=== PATIENT | female | born 1980 | race Caucasian/White ===

== ENCOUNTER 2024-07-02 12:49 | Emergency (ER) | payer OTHER, SELFPAY ==
[2024-07-02 12:56] VITALS: BP 132/84; PULSE 92; TEMP 36.8; O2SAT 98; BMI 34.3
--- NOTE | 2024-07-02 13:00 | ED_ITS ---
HPI HPI - General Adult General Chief complaint: Vaginal Bleeding Stated complaint: VAGINAL BLEEDING Time Seen by Provider: 07/02/24 12:55 Source: patient Mode of arrival: walk-in Limitations: no limitations History of Present Illness HPI narrative: 43-year-old female presents to the emergency department for heavy vaginal bleeding. It started 3 days ago and this has never happened to her before. LMP that was normal was 2 and half weeks ago. She does not complain of abdominal pain or cramping or dizziness. No injury Related Data Allergies Allergy/AdvReac Type Severity Reaction Status Date / Time Sulfa (Sulfonamide Allergy Severe Swelling Verified 07/02/24 12:55 Antibiotics) of Lip/Tongue/Throat Opioid HPI Opioid Management Most Recent Opioid Data: No Data to Display Review of Systems ROS Narrative A ten point review of systems is negative except as noted above. PFSH PFSH Social History Little interest or pleasure in doing things: not at all Feeling down, depressed, or hopeless: not at all Exam Narrative Exam Narrative: Nurses note and vital signs reviewed and patient is not hypoxic. General: The patient appears well and in no apparent distress. Patient is resting comfortably on cart. Skin: Warm, dry, no pallor noted. There is no rash noted. Head: Normocephalic, atraumatic Eye: Normal conjunctiva, no drainage Ears, Nose, Mouth, and Throat: oral mucosa is moist. Nares patent. Cardiovascular: Regular Rate and Rhythm Respiratory: Patient is in no distress, no accessory muscle use, lungs are clear to auscultation, no wheezing, rales or rhonchi Back: non-tender GI: Soft and nontender, no mass Musculoskeletal: The patient has no evidence of calf tenderness, no pitting edema, symmetrical pulses noted bilaterally Neurological: A&O, normal speech Psychiatric: Cooperative Constitutional Vital Signs, click to edit/add: Last Vital Signs Temp 98.3 F 07/02/24 12:56 Pulse 80 07/02/24 14:45 Resp 20 07/02/24 14:45 BP 131/89 07/02/24 14:45 Pulse Ox 96 07/02/24 14:45 O2 Del Method Room Air 07/02/24 14:45 Course Vital Signs Vital signs: Vital Signs Temperature 98.3 F 07/02/24 12:56 Pulse Rate 92 H 07/02/24 12:56 Respiratory Rate 16 07/02/24 12:56 Blood Pressure 132/84 07/02/24 12:56 Pulse Oximetry 98 07/02/24 12:56 Oxygen Delivery Method Room Air 07/02/24 12:56 Temperature 98.3 F 07/02/24 12:56 Pulse Rate 80 07/02/24 14:45 Respiratory Rate 20 07/02/24 14:45 Blood Pressure 131/89 07/02/24 14:45 Pulse Oximetry 96 07/02/24 14:45 Oxygen Delivery Method Room Air 07/02/24 14:45 Medical Decision Making MDM Narrative Medical decision making narrative: She is not and her test is negative. Ultrasound shows only mild enlargement of the uterus. She will be discharged home and follow-up with gynecology. Treatment diagnosis and follow-up were discussed with the patient Differential Diagnosis Differential Diagnosis: Miscarriage, ectopic , uterine fibroids, abnormal uterine bleed Lab Data Lab results reviewed: Yes I reviewed the patient's lab results Labs: Lab Results 07/02/24 Range/Units 13:10 WBC 9.7 (4.0-11.0) 10^3/uL RBC 4.24 (4.20-5.40) 10^6/uL Hgb 13.4 (12.0-16.0) g/dL Hct 39.6 (36.0-48.0) % MCV 93.4 (81.0-99.0) fL MCH 31.6 (26.7-34.0) pg MCHC 33.8 (29.9-35.2) g/dL RDW 12.3 (11.0-15.0) % Plt Count 254 (150-450) 10^3/uL MPV 9.1 L (9.5-13.5) fL Neut % (Auto) 70.1 (43.0-75.0) % Lymph % (Auto) 21.5 (20.5-60.0) % Sharkey % (Auto) 6.8 (1.7-12.0) % Eos % (Auto) 0.8 L (0.9-7.0) % Baso % (Auto) 0.5 (0.2-2.0) % Neut # (Auto) 6.8 H (1.4-6.5) 10^3/uL Lymph # (Auto) 2.1 (1.2-3.8) 10^3/uL Sharkey # (Auto) 0.7 (0.3-0.8) 10^3/uL Eos # (Auto) 0.1 (0.0-0.7) 10^3/uL Baso # (Auto) 0.1 (0.0-0.1) 10^3/uL Abs Immat Gran (auto) 0.03 (0.00-0.03) 10^3/uL Imm/Tot Granulo (auto) 0.3 (0.0-0.5) % Sodium 142 (136-145) mmol/L Potassium 3.6 (3.5-5.1) mmol/L Chloride 103 (98-107) mmol/L Carbon Dioxide 26.8 (21.0-32.0) mmol/L Anion Gap 15.8 BUN 14.0 (7.0-18.0) mg/dL Creatinine 0.92 (0.55-1.02) mg/dL Est GFR ( Amer) >60 (>=60 mL/min/1.73m^2) Est GFR (Non-Af Amer) >60 (>=60 mL/min/1.73m^2) BUN/Creatinine Ratio 15.2 Glucose 128 H (74-106) mg/dL Calcium 9.0 (8.5-10.1) mg/dL Serum HCG, Qual Negative (NEGATIVE) Imaging Data Pelvic ultrasound: Radiologist's impression: No evidence of ovarian torsion, mild enlargement of uterine Discharge Plan Discharge Chief Complaint: Vaginal Bleeding Clinical Impression: Dysfunctional uterine bleeding Patient Disposition: Home, Self-Care Time of Disposition Decision: 15:02 Condition: Good Mode of Transportation: Private Vehicle Print Language: Montenegrin Instructions: Abnormal (Dysfunctional) Uterine Bleeding (ED) Referrals: SANTY JAY [Primary Care Provider] - 1 week Gerald Mercado DO [Physician] -
[2024-07-02 13:30] LABS: Basophils Absolute Auto 0.1 10^3/uL (0.0-0.1); Basophils Percent Auto 0.5 % (0.2-2.0); Eosinophils Absolute Auto 0.1 10^3/uL (0.0-0.7); Eosinophils Percent Auto 0.8 % (0.9-7.0); Hematocrit 39.6 % (36.0-48.0); Hemoglobin 13.4 g/dL (12.0-16.0); Immature Granulocytes Abs Auto 0.03 10^3/uL (0.00-0.03); Immature Granulocytes Pct Auto 0.3 % (0.0-0.5); Lymphocytes Absolute Auto 2.1 10^3/uL (1.2-3.8); Lymphocytes Percent Auto 21.5 % (20.5-60.0); Mean Corpuscular HGB Conc 33.8 g/dL (29.9-35.2); Mean Corpuscular Hemoglobin 31.6 pg (26.7-34.0); Mean Corpuscular Volume 93.4 fL (81.0-99.0); Mean Platelet Volume 9.1 fL (9.5-13.5); Monocytes Absolute Auto 0.7 10^3/uL (0.3-0.8); Monocytes Percent Auto 6.8 % (1.7-12.0); Neutrophils Absolute Auto 6.8 10^3/uL (1.4-6.5); Neutrophils Percent Auto 70.1 % (43.0-75.0); Platelet Count 254 10^3/uL (150-450); Red Blood Count 4.24 10^6/uL (4.20-5.40); Red Cell Distribution Width 12.3 % (11.0-15.0); White Blood Count 9.7 10^3/uL (4.0-11.0)
[2024-07-02 13:43] LABS: Anion Gap 15.8; BUN Creatinine Ratio 15.2; Carbon Dioxide 26.8 mmol/L (21.0-32.0); Chloride 103 mmol/L (98-107); Estimated GFR (African America >60 (>=60 mL/min/1.73m^2); Estimated GFR (Non-African Ame >60 (>=60 mL/min/1.73m^2); Glucose 128 mg/dL (74-106); HCG Qualitative NEGATIVE (NEGATIVE); Internal Control Within Normal Limits; Potassium 3.6 mmol/L (3.5-5.1); Sodium 142 mmol/L (136-145)
[2024-07-02 14:45] VITALS: BP 131/89; PULSE 80; O2SAT 96
== END 2024-07-02 15:15 | disposition home or self-care (01) ==
PROVIDERS: Emergency Provider Emergency Medicine; PCP Family Medicine
DX: N93.8 Other specified abnormal uterine and vaginal bleeding (principal); N85.2 Hypertrophy of uterus
CPT/HCPCS: 36415; 76830; 80048; 84703; 85025; 99285

== ENCOUNTER 2024-07-30 15:14 | Outpatient (REF) | payer OTHER, SELFPAY | END 2024-07-30 15:15 | disposition home or self-care (01) | LOC: LAB 15:14 | PROVIDERS: PCP Family Medicine; Visit Provider Obstetrics & Gynecology | DX: N92.0 Excessive and frequent menstruation with regular cycle (principal) | CPT/HCPCS: 88305 ==

== ENCOUNTER 2024-08-15 11:11 | Outpatient (OUT) | payer OTHER, SELFPAY ==
[2024-08-15 11:41] LABS: Basophils Percent Auto 0.4 % (0.2-2.0); Eosinophils Absolute Auto 0.1 10^3/uL (0.0-0.7); Eosinophils Percent Auto 0.9 % (0.9-7.0); Hematocrit 36.7 % (36.0-48.0); Hemoglobin 12.7 g/dL (12.0-16.0); Immature Granulocytes Abs Auto 0.03 10^3/uL (0.00-0.03); Immature Granulocytes Pct Auto 0.3 % (0.0-0.5); Lymphocytes Absolute Auto 2.3 10^3/uL (1.2-3.8); Lymphocytes Percent Auto 24.3 % (20.5-60.0); Mean Corpuscular HGB Conc 34.6 g/dL (29.9-35.2); Mean Corpuscular Hemoglobin 32.6 pg (26.7-34.0); Mean Corpuscular Volume 94.1 fL (81.0-99.0); Mean Platelet Volume 8.9 fL (9.5-13.5); Monocytes Absolute Auto 0.6 10^3/uL (0.3-0.8); Monocytes Percent Auto 6.2 % (1.7-12.0); Neutrophils Absolute Auto 6.5 10^3/uL (1.4-6.5); Neutrophils Percent Auto 67.9 % (43.0-75.0); Platelet Count 232 10^3/uL (150-450); Red Cell Distribution Width 12.4 % (11.0-15.0); White Blood Count 9.6 10^3/uL (4.0-11.0)
[2024-08-15 11:56] LABS: INR 0.98; Partial Thromboplastin Time 26.2 sec (22.3-36.2); Prothrombin Time 10.4 sec (9.0-11.6)
[2024-08-15 12:12] LABS: Alanine Aminotransferase 52 U/L (14-59); Albumin Globulin Ratio 0.9; Albumin Level 3.3 g/dL (3.4-5.0); Alkaline Phosphatase 54 U/L (46-116); Anion Gap 11.8; Aspartate Amino Transferase 53 U/L (15-37); Bilirubin Direct 0.1 mg/dL (0.0-0.2); Bilirubin Total 0.4 mg/dL (0.2-1.0); Calcium 8.8 mg/dL (8.5-10.1); Carbon Dioxide 27.6 mmol/L (21.0-32.0); Chloride 105 mmol/L (98-107); Estimated GFR (African America >60 (>=60 mL/min/1.73m^2); Estimated GFR (Non-African Ame >60 (>=60 mL/min/1.73m^2); Globulin 3.6 g/dL; Glucose 104 mg/dL (74-106); Potassium 3.4 mmol/L (3.5-5.1); Sodium 141 mmol/L (136-145); Total Protein 6.9 g/dL (6.4-8.2)
== END 2024-08-15 11:12 | disposition home or self-care (01) ==
LOC: PST 11:12
PROVIDERS: PCP Family Medicine; Visit Provider Obstetrics & Gynecology
DX: Z01.812 Encounter for preprocedural laboratory examination (principal); N92.0 Excessive and frequent menstruation with regular cycle; N93.9 Abnormal uterine and vaginal bleeding, unspecified; R10.2 Pelvic and perineal pain
CPT/HCPCS: 80048; 80076; 85025; 85610; 85730

== ENCOUNTER 2024-08-22 10:23 | Outpatient (OUT) | payer OTHER, SELFPAY ==
--- NOTE | 2024-08-22 10:28 | ECG_ITS ---
[facility] Test Date: 2024-08-22 Pat Name: EDUARDO BENITEZ Department: Room: - Gender: Female Electrologist: : 1980 Requested By: SALMA BOLDEN Order Number: [id number] Reading MD: MARIETTA SEQUEIRA M.D. Measurements Intervals Dyke Rate: 75 P: 60 AK: 186 QRS: -8 QRSD: 94 T: 68 QT: 397 QTc: 444 Interpretive Statements SINUS RHYTHM NONSPECIFIC T-WAVE ABNORMALITY Abnormal ECG No previous ECG available for comparison Electronically Signed On 08-22-2024 21:09:08 EDT by MARIETTA SEQUEIRA M.D.
== END 2024-08-22 10:24 | disposition home or self-care (01) ==
LOC: PST 10:23
PROVIDERS: PCP Family Medicine; Visit Provider Obstetrics & Gynecology
DX: Z01.810 Encounter for preprocedural cardiovascular examination (principal); N92.0 Excessive and frequent menstruation with regular cycle; N93.9 Abnormal uterine and vaginal bleeding, unspecified; R10.2 Pelvic and perineal pain; R94.31 Abnormal electrocardiogram [ECG] [EKG]
CPT/HCPCS: 93005

== ENCOUNTER 2024-08-24 09:33 | Day surgery (SDC) | payer OTHER, SELFPAY ==
[2024-08-15 11:41] VITALS: BP 145/83; PULSE 77; TEMP 36.3; O2SAT 98; BMI 35.1
[2024-08-24] VITALS (17 sets, daily range): BP systolic 113–151; BP diastolic 61–102; PULSE 71–88; TEMP 36.1–36.2; O2SAT 92–98; BMI 35.2
[2024-08-24 09:52] LABS: Basophils Absolute Auto 0.1 10^3/uL (0.0-0.1); Basophils Percent Auto 0.4 % (0.2-2.0); Eosinophils Absolute Auto 0.1 10^3/uL (0.0-0.7); Eosinophils Percent Auto 0.8 % (0.9-7.0); Hematocrit 38.9 % (36.0-48.0); Hemoglobin 13.4 g/dL (12.0-16.0); Immature Granulocytes Abs Auto 0.04 10^3/uL (0.00-0.03); Immature Granulocytes Pct Auto 0.4 % (0.0-0.5); Lymphocytes Absolute Auto 2.9 10^3/uL (1.2-3.8); Lymphocytes Percent Auto 25.9 % (20.5-60.0); Mean Corpuscular HGB Conc 34.4 g/dL (29.9-35.2); Mean Corpuscular Hemoglobin 32.6 pg (26.7-34.0); Mean Corpuscular Volume 94.6 fL (81.0-99.0); Monocytes Absolute Auto 0.7 10^3/uL (0.3-0.8); Monocytes Percent Auto 6.3 % (1.7-12.0); Neutrophils Absolute Auto 7.5 10^3/uL (1.4-6.5); Neutrophils Percent Auto 66.2 % (43.0-75.0); Platelet Count 230 10^3/uL (150-450); Red Blood Count 4.11 10^6/uL (4.20-5.40); Red Cell Distribution Width 12.3 % (11.0-15.0); White Blood Count 11.3 10^3/uL (4.0-11.0)
[2024-08-24] MEDS: LACTATED RINGER'S SOLUTION 1,000 ML 50 ML IV ×3 (10:01→15:57)
[2024-08-24 10:05] LABS: HCG Quantitative <1 mIU/mL
--- NOTE | 2024-08-24 12:49 | PM.ONB ---
Brief Operative Note Date of procedure: 08/24/24 Pre-op diagnosis general: menorrhagia, desires permenant sterilization, desires removal of essure coils Post-op diagnosis: other (enlarged uterus) Procedure: NAME OF PROCEDURE: robotic assisted Laparoscopic lt salpingectomy, rt partial salpingectomy, removal of bilateral essure coils, with Bianca endometrial ablation with hysteroscopy findings-enlarged uterus, did not tolerate trendelenburg PROCEDURE: The patient was taken back to the OR where she was prepped and draped in the normal sterile fashion after being placed in the dorsal lithotomy position, after being placed under general anesthesia without difficulty. a weighted speculum was then placed into the vagina. Pap and endometrial bx were performed without difficultyThe anterior lip was grasped with a single tooth tenaculum. The patient was then sounded to approximatley 9cm. The patient was gently sounded using Hegar dilators and the hysteroscope was passed through the cervix into the uterus where both ostia were seen. No gross evidence of polyps, fibroids or malignancy. The cervical length was noted to be 4cm. The Bianca ablation apparatus was set to approximately 5cm in length. This was placed in through the cervix and into the uterus. After the seal was tested, at that time the total ablation of 120 seconds was performed with the Bianca without difficulty. All instruments were removed from the vagina. A wet sponge stick was placed into the patient's vagina. Attention was then turned to the patient's abdomen, where a scalpel was used to make a small infraumbilical incision. The S retractors were then used to dissect the underlying layers until the fascia could be seen. The fascia was then grasped with Fiona clamps and tented up. A knife was then used to make a small incision to the fascia. The muscle was identified, at that time two sutures of #0 Vicryl on a GI needlewas then used and placed through the fascia. The peritoneum was then identified and entered bluntly. The 10-4 Theresa was then placed into the patient's abdomen. This was confirmed with direct visualization of the bowel, using the laparoscope. The patient's abdomen was then insufflated using approximately 4 liters of CO2 gas. Survey of the patient's abdomen demonstrated normal appearing ovaries, uterus and tubes. A second and third lateral robotic ports, which was 8mm in size, was then placed laterally after incision was made in the skin under direct visualization. the robotic arms were engaged. The patient's tube on the patient's lt side was identified. The tube was then tented up using a grasper. The ligasure was used to transect and coagulate the mesosalpingx from the fimbriated end to the insertion at the uterus, the tube was amputated and removed in its entirety.? Excellent hemostasis was noted. ?the rt partial tube was identified and removed using the vessel sealer, bilateral essure coil removal. The lateral ports were then moved under direct visualization with excellent hemostasis. The abdomen was deinsufflated. All instruments were removed from the patient's abdomen. The fascia was closed using the #0 Vicryl on GI needle. The skin was closed using 4-0 Vicryl subcuticularly. All instruments were removed from the patient's vagina as well. The patient was taken out of the dorsal lithotomy position and placed in the supine position and taken to recovery in stable condition. Sponge, lap and needle counts were correct x2. ??? Anesthesia: SUNG Surgeon: Gerald Mercado Customer Associate: Alma Delia Abreu Estimated blood loss (mL): 10 Pathology: other (tubes and essure coils) Condition: stable Disposition: PACU Urinary Catheter Management Urinary Catheter Management Urethral: Cath placed during this visit: no
[2024-08-24] MEDS: 0.9 % SODIUM CHLORIDE 1,000 ML 75 ML IV (12:58)
--- NOTE | 2024-08-24 15:17 | PC.NURSE ---
1515- Report to Airam Rodas RN
--- NOTE | 2024-08-24 15:34 | PC.NURSE ---
Complains of dizziness and being hot; cool cloth to forehead; no urge to void
--- NOTE | 2024-08-24 16:04 | PC.NURSE ---
Denies urge to void; continues to c/o feeling hot; blankets removed and cool cloth to neck
[2024-08-24] MEDS: ONDANSETRON PF 4 MG/2 ML VIAL IV (16:41)
--- NOTE | 2024-08-24 16:51 | PC.NURSE ---
Emesis of bile; c/o dizziness when sitting at edge of cart.
--- NOTE | 2024-08-24 16:53 | PC.NURSE ---
Medicated with Zofran IV as ordered; no further emesis. Up to bathroom and voids clear yellow without difficulty; Back to cart and lying down.
--- NOTE | 2024-08-24 17:03 | PC.NURSE ---
No furrther emesis; states nausea better
== END 2024-08-24 17:08 | disposition home or self-care (01) ==
PROVIDERS: PCP Family Medicine; Visit Provider Obstetrics & Gynecology
PROC: (CPT 840; principal; 2024-08-24 11:00)
PROC: (CPT 840; 2024-08-24 11:00)
DX: Z30.2 Encounter for sterilization (principal); N92.0 Excessive and frequent menstruation with regular cycle; N93.9 Abnormal uterine and vaginal bleeding, unspecified; R10.2 Pelvic and perineal pain; Z90.49 Acquired absence of other specified parts of digestive tract; Z98.51 Tubal ligation status; E03.9 Hypothyroidism, unspecified; K21.9 Gastro-esophageal reflux disease without esophagitis; K27.9 Peptic ulcer, site unspecified, unspecified as acute or chronic, without hemorrhage or perforation; E28.2 Polycystic ovarian syndrome
CPT/HCPCS: 58563; 58661; 36415; 84702; 85025; J0131; J1100; J1171; J1885; J2250; J2405; J2704; J3010

== ENCOUNTER 2024-08-26 18:29 | Emergency (ER) | payer OTHER, SELFPAY ==
[2024-08-26] VITALS (7 sets, daily range): BP systolic 142–184; BP diastolic 97–98; PULSE 74–99; TEMP 36.6; O2SAT 96–99; BMI 34.3
--- NOTE | 2024-08-26 18:39 | PC.NURSE ---
no resp s/s observed at this time
--- NOTE | 2024-08-26 18:47 | ECG_ITS ---
[facility] Test Date: 2024-08-26 Pat Name: EDUARDO BENITEZ Department: Room: - Gender: Female Technical Agronomist: : 1980 Requested By: 0923 Order Number: [id number] Reading MD: MARIETTA SEQUEIRA M.D. Measurements Intervals Lyons Rate: 70 P: 73 ND: 168 QRS: 59 QRSD: 86 T: 53 QT: 398 QTc: 419 Interpretive Statements 1100 Sinus rhythm 7300 Indeterminate axis 9120 atypical ECG Compared to ECG 08/22/2024 10:34:52 Indeterminate axis now present T-wave abnormality no longer present Electronically Signed On 08-27-2024 7:45:16 EDT by MARIETTA SEQUEIRA M.D.
--- NOTE | 2024-08-26 19:14 | ED_ITS ---
HPI HPI - General Adult General Chief complaint: Anxiety Stated complaint: SOB AND TINGLY Time Seen by Provider: 08/26/24 18:47 Source: patient Mode of arrival: walk-in History of Present Illness HPI narrative: 43-year-old female presents here with a chief complaint of numbness and tingling to her fingers and cheeks. She did have a bilateral salpingectomy laparoscopic procedure on Tuesday 48 hours ago. She denies any chest pain denies shortness of breath. She does have a history of some anxiety at times. She states she just felt like her heart was racing and her hands were tingling. Patient's vital signs are stable here she is not hypoxic she is not tachycardic. Lung sounds are clear throughout. Patient looks well here today. Abdomen soft nontender palpation and dressings are still intact on her abdomen. Related Data Home Medications ?Medication ?Instructions ?Recorded ?Confirmed levothyroxine 100 mcg tablet 100 mcg PO DAILY 08/15/24 08/24/24 omeprazole 20 mg capsule,delayed 20 mg PO DAILY PRN he artburn 08/15/24 08/24/24 release potassium chloride 20 mEq 20 meq PO DAILY 08/15/2406/19 tablet,extended release ursodiol 300 mg capsule 600 mg PO Q12H 08/15/2406/19 Previous Rx's ?Medication ?Instructions ?Recorded hydrocodone 5 mg-acetaminophen 325 1 tab PO Q4H PRN pa in 4 days #16 08/24/24 mg tablet tabs ibuprofen 800 mg tablet 800 mg PO Q8H PRN pain 14 da ys #40 08/24/24 tabs Allergies Allergy/AdvReac Type Severity Reaction Status Date / Time Sulfa (Sulfonamide Allergy Severe Swelling Verified 08/15/24 11:19 Antibiotics) of Lip/Tongue/Throat Opioid HPI Opioid Management Most Recent Opioid Data: Last Pain Assessment 08/24/24, 09:41 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 cirrhosis (ICD-10) Abnormal uterine bleeding ?N93.9 - Abnormal uterine and vaginal bleeding, unspecified (ICD-10) Pelvic pain ?R10.2 - Pelvic and perineal pain (ICD-10) Menorrhagia ?N92.0 - Excessive and frequent menstruation with regular cycle (ICD-10) Request for sterilization ?Z30.2 - Encounter for sterilization (ICD-10) Peptic ulcer ?K27.9 - Peptic ulcer, site unspecified, unspecified as acute or chronic, without hemorrhage or perforation (ICD-10) GERD (gastroesophageal reflux disease) ?K21.9 - Gastro-esophageal reflux disease without esophagitis (ICD-10) Hypokalemia ?E87.6 - Hypokalemia (ICD-10) Hypothyroidism ?E03.9 - Hypothyroidism, unspecified (ICD-10) PCOS (polycystic ovarian syndrome) ?E28.2 - Polycystic ovarian syndrome (ICD-10) Surgical History (Updated 08/15/24 @ 11:28 by Zuleika Lancaster NP) History of colonoscopy ?Z98.890 - Other specified postprocedural states (ICD-10) History of hernia repair ?Z98.890 - Other specified postprocedural states (ICD-10) ?Z87.19 - Personal history of other diseases of the digestive system (ICD-10) History of liver biopsy (2024) ?Z98.890 - Other specified postprocedural states (ICD-10) History of cholecystectomy ?Z90.49 - Acquired absence of other specified parts of digestive tract (ICD- 10) History of tubal ligation ?Z98.51 - Tubal ligation status (ICD-10) Family History (Updated 08/15/24 @ 11:28 by Zuleika Lancaster NP) Other Family history of cancer Family history of diabetes mellitus Social History (Updated 08/15/24 @ 11:24 by Zuleika Lancaster NP) Within the past year, how often did you have a drink containing alcohol: never Score interpretation: A score less than 3 is consistent with normal alcohol consumption. Smoking status: Never smoker Non-prescribed substance use: denies use Previous occupational history: Self-employed Highest level of school completed/degree received: high school graduate Little interest or pleasure in doing things: not at all Feeling down, depressed, or hopeless: not at all Exam Narrative Exam Narrative: All Systems are negative except as noted/marked.All systems reviewed and otherwise negative Nurses note and vital signs reviewed and patient is not hypoxic. General: The patient appears well and in no apparent distress. Patient is resting comfortably on cart. Skin: Warm, dry, no pallor noted. There is no rash noted.'s are clean and dry Steri-Strips in place and intact. Head: Normocephalic, atraumatic Eye: Normal conjunctiva, no drainage, EOMI. PERRL Ears, Nose, Mouth, and Throat: oral mucosa is moist. Nares patent. Mouth without vesicles. Ear canals patent. Tm's without Erythema Cardiovascular: Regular Rate and Rhythm Respiratory: Patient is in no distress, no accessory muscle use, lungs are clear to auscultation, no wheezing, rales or rhonchi GI: Normal bowel sounds, no tenderness to palpation, no masses appreciated. No rebound, guarding, or rigidity noted. Musculoskeletal: The patient has no evidence of calf tenderness, no pitting edema, symmetrical pulses noted bilaterally Neurological: A&O x4, normal speech Psychiatric: Cooperative Constitutional Vital Signs, click to edit/add: Last Vital Signs Temp 97.9 F 08/26/24 18:33 Pulse 99 H 08/26/24 18:51 Resp 18 08/26/24 18:55 BP 142/98 H 08/26/24 18:47 Pulse Ox 96 08/26/24 19:00 O2 Del Method Room Air 08/26/24 18:39 Course Vital Signs Vital signs: Vital Signs Temperature 97.9 F 08/26/24 18:33 Pulse Rate 74 08/26/24 18:33 Respiratory Rate 18 08/26/24 18:33 Blood Pressure 184/97 H 08/26/24 18:33 Pulse Oximetry 99 08/26/24 18:33 Oxygen Delivery Method Room Air 08/26/24 18:33 Temperature 97.9 F 08/26/24 18:33 Pulse Rate 99 H 08/26/24 18:51 Respiratory Rate 18 08/26/24 18:55 Blood Pressure 142/98 H 08/26/24 18:47 Pulse Oximetry 96 08/26/24 19:00 Oxygen Delivery Method Room Air 08/26/24 18:39 Medical Decision Making MDM Narrative Medical decision making narrative: Patient presented to the emergency room with chief complaint of tingling to her hands and face. She appears she is having more had had a stress reaction or anxiety attack prior to arrival. Patient is not tachycardic she is not tachypneic shows no signs of distress at this time lung sounds are clear throughout EKG and chest x-ray performed and within normal limits. Patient does have a history of stress reactions. Her abdomen is soft nontender to palpation she is post salpingectomy bilaterally with laparoscopic procedure. I did remove the initial dressings on her abdomen. Steri-Strips are still intact and wounds look clean and dry. Patient is scheduled to follow-up with her STRAIGHT TOOTH GEAR GENERATOR OPERATOR later this week. Patient's return to the emergency room were discussed. Patient otherwise looks healthy no acute distress Differential Diagnosis Differential Diagnosis: , Anxiety attack, stress Medical Records Medical records reviewed: Yes I reviewed the patient's medical records Lab Data Lab results reviewed: Yes I reviewed the patient's lab results ECG Data Attestation: ?I have reviewed the pertinent ECG results. Interpretation: 1851 rhythm heart rate 70 bpm, NH interval 168 ms QRS duration 86 ms, no ST elevation or depression no STEMI Discharge Plan Discharge Chief Complaint: Anxiety Clinical Impression: Stress reaction Patient Disposition: Home, Self-Care Condition: Good Mode of Transportation: Private Vehicle Prescriptions / Home Meds: No Action levothyroxine 100 mcg tablet 100 mcg PO DAILY ursodiol 300 mg capsule 600 mg PO Q12H potassium chloride 20 mEq tablet extended release 20 meq PO DAILY omeprazole 20 mg capsule,delayed release(DR/EC) 20 mg PO DAILY PRN (Reason: heartburn) ibuprofen 800 mg tablet 800 mg PO Q8H PRN (Reason: pain) 14 Days Qty: 40 0RF hydrocodone-acetaminophen 5-325 mg tablet 1 tab PO Q4H PRN (Reason: pain) 4 Days Qty: 16 0RF Print Language: Lao Instructions: Stress (ED) Referrals: SANTY JAY [Primary Care Provider, Family Practice] - 1 week Discharge Date/Time: 08/26/24 19:49
== END 2024-08-26 19:49 | disposition home or self-care (01) ==
PROVIDERS: Emergency Provider Emergency Medicine; PCP Family Medicine
DX: F43.9 Reaction to severe stress, unspecified (principal); Z90.49 Acquired absence of other specified parts of digestive tract; Z98.51 Tubal ligation status
CPT/HCPCS: 71046; 93005; 99284

== ENCOUNTER 2024-11-12 15:57 | Outpatient (REF) | payer OTHER, SELFPAY ==
--- OUTSIDE RECORDS SUMMARY | 2024-11-12 10:40 | XMS_ITS | Encounter Summary ---
Author Organization [facility] Address [address] [place] [address] Care Team Providers Care Regional Truck Driver Name Role Phone KejamarcusAgusto DO Primary Care Provider [phone] Reason for Visit * Reason Comments Well Women Visit encounter for weight management Encounter Details Date Type Department Care Team (Late st Contact Info) Description 11/12/2024 10:40 AM EDT Office Visit [facility] [address] [place] [id number] Gerald Mercado DO [address] [place] [id number] Well woman exam with routine gynecological exam; Encounter for weight management; Breast cancer screening by mammogram Social History Tobacco Use Types Packs/Day Years Used Date Smoking Tobacco: Never Passive Smoke Exposure: Never Smokeless Tobacco: Never Alcohol Use Standard Drinks/Week Comments Defer 0 (1 standard drink = 0.6 oz pur e alcohol) Comments No Sex and Gender Information Value Date Recorded Sex Assigned at Not on file Legal Sex Female 7:24 PM EDT Gender Identity Not on file Sexual Orientation Not on file documented as of this encounter Last Filed Vital Signs Vital Sign Reading Time Taken Comments Blood Pressure 120/70 11/12/2024 10:52 AM EDT Pulse - - Temperature - - Respiratory Rate - - Oxygen Saturation - - Inhaled Oxygen Concentration - - Weight 92 kg (202 lb 12.8 oz) 11/12/2024 10:52 A M EDT Height - - Body Mass Index 34.81 10/15/2024 2:29 PM EDT documented in this encounter Plan of Treatment Upcoming Encounters Date Type Department Care Team (Late st Contact Info) Description 12/10/2024 2:20 PM EDT Office Visit [facility] [address] [place] [address] Gia Cid PA [address] [place] [address] 01/08/2025 9:50 AM EDT Office Visit [facility] [address] [place] [address] Alyssa Horvath MD [address] [place] [address] 11/19/2025 10:00 AM EDT Procedure Visit [facility] [address] [facility] [place] [address] Gerald Mercado DO [address] [facility] [address] [place], [place] [id number] Scheduled Orders Name Type Priority Associated Diagnoses Orde r Schedule Bilateral screening mammogram Imaging Routine Breast cancer screening by mammogram Expected: 11/12/2024 (Approximate), Expires: 01/13/2026 THIN PREP TIS PAP AND HR HPV DNA Pathology and Cytology Routine Well woman exam with routine gynecological exam Ordered: 11/12/2024 documented as of this encounter Visit Diagnoses Diagnosis Well woman exam with routine gynecological exam Routine gynecological examination Encounter for weight management Breast cancer screening by mammogram documented in this encounter Care Teams Regional Truck Driver Relationship Specialty Start Date End Date Agusto Alford DO [address] [place] [address] PCP - General Family Medicine 10/25/23 documented as of this encounter
--- OUTSIDE RECORDS SUMMARY | 2024-11-12 16:00 | XMS_ITS | Clinical Summary ---
Author Organization [facility] Address [address] [place] [address] Care Team Providers Care Cyber Incident Analyst Name Role Phone Agusto Alford DO Primary Care Provider [phone] Allergies Active Allergy Reactions Criticality Noted Date Comments Sulfa Antibiotics 10/13/2023 Other Reaction(s): Anaphylaxis, throat and mouth swells Medications potassium chloride CR (K-Tab) 20 MEQ ER tablet Take 20 mEq by mouth Daily 10/13/19 24 Active ursodiol (Actigall) 300 MG capsule Take 300 mg by mouth in the morning and 300 mg before bedtime. 07/16/19 25 Active levothyroxine (Synthroid, Levoxyl) 100 MCG tablet Take 100 mcg by mouth Daily 05/24/19 25 Active omeprazole (PriLOSEC) [address] capsule Take 20 mg by mouth in the morning. Take before meals. Do not crush or chew. Active liothyronine (Cytomel) 5 MCG tabletIndications: Acquired hypothyroidism Take 1 tablet (5 mcg) by mouth in the morning and 1 tablet (5 mcg) before bedtime. 180 tablet 1 10/10/19 25 025 Active metFORMIN XR (Glucophage-XR) 500 MG 24 hr tabletIndications: PCOS (polycystic ovarian syndrome) Take 1 tablet (500 mg) by mouth in the evening. Take with meals Do not crush, chew, or split. 30 tablet 11 10/16/19 25 025 Active phentermine (Adipex-P) 37.5 MG tabletIndications: Encounter for weight management Take 1 tablet (37.5 mg) by mouth in the morning. Take before meals. 30 tablet 11/13/19 25 025 Active metFORMIN XR (Glucophage-XR) 500 MG 24 hr tabletIndications: Encounter for weight management Take 2 tablets (1,000 mg) by mouth in the evening. Take with meals Do not crush, chew, or split. 30 tablet 11 11/13/19 25 025 Active clotrimazole-betam ethasone (Lotrisone) cream Twice daily 09/28/19 24 025 Discontinued Active Problems Problem Noted Date Diagnosed Date Need for crutch training 01/25/2024 Left foot pain 01/25/2024 Encounters Date Type Department Care Team Description 11/12/2024 10:40 AM EDT Office Visit [facility] [address] [place] [address] Salma Mercado, Well woman exam with routine gynecological exam; Encounter for weight management; Breast cancer screening by mammogram 11/12/2024 Bamboo flowsheet [facility] [address] [place] [address] Salma Mercado DO 11/05/2024 Travel 10/15/2024 2:20 PM EDT Office Visit [facility] [address] [place] [address] Salma Mercado DO PCOS (polycystic ovarian syndrome) 10/15/2024 Bamboo flowsheet [facility] [address] [place] [address] Salma Mercado DO 10/09/2024 9:50 AM EDT Office Visit [facility] [address] [place] [phone] Alyssa Horvath MD Acquired hypothyroidism (Primary Dx); Vitamin D deficiency; Encounter for dietary consultation; Class 2 obesity due to excess calories without serious comorbidity with body mass index (BMI) of 35.0 to 35.9 in adult 10/09/2024 Bamboo flowsheet [facility] [address] [place] [address] Alyssa Horvath MD 10/08/2024 Travel 09/10/2024 2:00 PM EDT Office Visit [facility] [address] [place] [address] Samara Giang, MELODY Postoperative visit; Status post bilateral salpingectomy; S/P endometrial ablation; Encounter for removal of contraceptive coil from fallopian tube 09/10/2024 Bamboo flowsheet [facility] [address] [place] [address] Samara Giang NP 08/26/2024 Abstract [facility] [address] [place] [address] Salma Mercado, DO 08/24/2024 Abstract [facility] [address] [place] [address] Salma Mercado, DO 08/24/2024 External Result Encounter [facility] External Department Unsolicited Salma Mercado, DO 08/24/2024 Clinisync Result Encounter [facility] External Department Unsolicited Salma Mercado, DO 08/22/2024 Clinisync Result Encounter [facility] External Department Unsolicited Salma Mercado, DO 08/15/2024 Clinisync Result Encounter [facility] External Department Unsolicited Salma Mercado, DO from Last 3 Months Family History Relation Name Status Comments Father Alive Mother Alive Social History Tobacco Use Types Packs/Day Years Used Date Smoking Tobacco: Never Passive Smoke Exposure: Never Smokeless Tobacco: Never Tobacco Cessation:Counseling Given: Yes Alcohol Use Standard Drinks/Week Comments Defer 0 (1 standard drink = 0.6 oz pur e alcohol) Comments No Sex and Gender Information Value Date Recorded Sex Assigned at Not on file Legal Sex Female 7:24 PM EDT Gender Identity Not on file Sexual Orientation Not on file Last Filed Vital Signs Vital Sign Reading Time Taken Comments Blood Pressure 120/70 11/12/2024 10:52 AM EDT Pulse 71 10/09/2024 10:00 AM EDT Temperature - - Respiratory Rate 16 10/09/2024 10:00 AM EDT Oxygen Saturation 99% 10/09/2024 10:00 AM EDT Inhaled Oxygen Concentration - - Weight 92 kg (202 lb 12.8 oz) 11/12/2024 10:52 A M EDT Height 162.6 cm (5' 4 ) 10/15/2024 2:29 PM EDT Body Mass Index 34.81 10/15/2024 2:29 PM EDT Plan of Treatment Upcoming Encounters Date Type Department Care Team (Late st Contact Info) Description 12/10/2024 2:20 PM EDT Office Visit [facility] [address] [facility] [place] [phone] Gia Cid PA [address] [facility] [address] [place], [place] [id number] 01/08/2025 9:50 AM EDT Office Visit [facility] [address] [place] [address] Alyssa Horvath MD [address] [place] [address] 11/19/2025 10:00 AM EDT Procedure Visit [facility] [address] [facility] [place] [address] Salma Mercado DO [address] [facility] [place] [address] Health Maintenance Due Date Last Done Comments Pap Smear 2001 Cervical Cancer Screening 2010 HPV/Cotest 2010 Mammogram 2020 Influenza Vaccine (#1) 2024 Procedures Procedure Name Priority Date/Time Associated Diagnosis Comments PATHOLOGY REQUEST FOR LAB SEBAS Routine 08/24/2024 1:18 PM EDT TBH PREG QUANT HCG Routine 08/24/2024 9: 37 AM EDT ALL CBC WITH AUTO DIFF Routine 08/24/2024 9:37 AM EDT ECG 12-LEAD 08/22/2024 10:34 AM EDT [facility] APTT Routine 08/15/2024 11:30 AM EDT [facility] PROTHROMBIN TIME INR W/O COUM Routine 08/15/2024 11:30 AM EDT ALL BASIC METABOLIC PANEL Routine 08/15/2024 11:30 AM EDT [facility] LIVER PANEL Routine 08/15/2024 11:3 0 AM EDT ALL CBC WITH AUTO DIFF Routine 08/15/2024 11:30 AM EDT from Last 3 Months Results * PATHOLOGY REQUEST FOR LAB SEBAS (08/24/2024 1:18 PM EDT) [facility] PATHOLOGY REQUEST FOR LAB SEBAS 08/31/2024 8:[address] [facility] Comment:See report. Scanned copy available in EMR. Other Topography unknown / Unknown 08/24/2024 1:18 PM EDT 08/28/2024 4:51 AM EDT Narrative [facility] - 08/31/2024 8:53 AM EDT [place] [employer] us Salma Jess DO LAB BLOOD ORDERABLES Final Resul t [facility] [address] [place] [address], [facility] [address] [place] [address] * TBH PREG QUANT HCG (08/24/2024 9:37 AM EDT) [facility] HCG QUANTITATIVE <1 mIU/mL TBH Comment: 5-50 0.2-1 WEEK 50-500 1-2 WEEKS 100-5,000 2-3 WEEKS 500-10,000 3-4 WEEKS 1,000-50,000 4-5 WEEKS 10,000-100,000 5-6 WEEKS 15,000-200,000 6-8 WEEKS 10,000-100,000 2-3 MONTHS 08/24/2024 9:37 AM EDT 08/24/2024 9:38 AM EDT Narrative [facility] - 08/24/2024 10:05 AM EDT us Salma Jess DO [facility] Final Result [facility] * (ABNORMAL) ALL CBC WITH AUTO DIFF (08/24/2024 9:37 AM EDT) Only the most recent of2 resultswithin the time period is included. TBH WBC 11.3(H) 4.0 - 11.0 10 3/uL TBH TBH RBC 4.11(L) 4.20 - 5.40 10 6/uL TBH TBH HGB 13.4 12.0 - 16.0 g/dL TBH TBH HCT 38.9 36.0 - 48.0 % TBH TBH MCV 94.6 81.0 - 99.0 fL TBH TBH MCH 32.6 26.7 - 34.0 pg TBH TBH MCHC 34.4 29.9 - 35.2 g/dL TBH TBH RDW 12.3 11.0 - 15.0 % TBH TBH PLT 230 150 - 450 10 3/uL TBH TBH MPV 9.0(L) 9.5 - 13.5 fL TBH NEUTROPHILS PERCENT AUTO 66.2 43.0 - 75.0 % TBH LYMPHOCYTES PERCENT AUTO 25.9 20.5 - 60.0 % TBH MONOCYTES PERCENT AUTO 6.3 1.7 - 12.0 % TBH TBH EO % 0.8(L) 0.9 - 7.0 % TBH BASOPHILS PERCENT AUTO 0.4 0.2 - 2.0 % TBH IMMATURE GRANULOCYTES PCT AUTO 0.4 0.0 - 0.5 % TBH NEUTROPHILS ABSOLUTE AUTO 7.5(H) 1.4 - 6.5 10 3/uL TBH LYMPHOCYTES ABSOLUTE AUTO 2.9 1.2 - 3.8 10 3/uL TBH MONOCYTES ABSOLUTE AUTO 0.7 0.3 - 0.8 10 3/uL TBH TBH EO # 0.1 0.0 - 0.7 10 3/uL TBH BASOPHILS ABSOLUTE AUTO 0.1 0.0 - 0.1 10 3/uL TBH IMMATURE GRANULOCYTES ABS AUTO 0.04(H) 0.00 - 0.03 10 3/uL TBH 08/24/2024 9:37 AM EDT 08/24/2024 9:38 AM EDT Narrative [facility] - 08/24/2024 9:54 AM EDT us Salma Mercado DO [facility] Final Result [facility] * ECG 12-LEAD (08/22/2024 10:34 AM EDT) Anatomical Region Laterality Modality Other 08/22/2024 10:3 4 AM EDT Narrative 08/22/2024 9:09 [place] [address] Electrocardiograph Report Signed Patient: EDUARDO BENITEZ MR#: [id number] : 1980 Acct:[id number] Age/Sex: 43 / F ADM Date: 08/22/24 Loc: [facility] Attending Dr: Salma Mercado D.O. Ordering Physician: Salma Mercado D.O. Date of Service: 08/22/24 Procedure(s): ECG 12 lead Accession Number(s): [id number] cc: [facility] Test Date: 2024-08-22 Pat Name: EDUARDO BENITEZ Department: Room: - Gender: Female Knitter Machine: : 1980 Requested By: SALMA MERCADO Order Number: [id number] Bryce MD: MARIETTA SEQUEIRA M.D. Measurements Intervals Buchanan Rate: 75 P: 60 VT: 186 QRS: -8 QRSD: 94 T: 68 QT: 397 QTc: 444 Interpretive Statements SINUS RHYTHM NONSPECIFIC T-WAVE ABNORMALITY Abnormal ECG No previous ECG available for comparison Electronically Signed On 08-22-2024 21:09:08 EDT by MARIETTA SEQUEIRA M.D. Dictated By: MARIETTA SEQUEIRA Signed By: 08/22/24210808/22/242108 DD/ 33 TD/TT: Terrazzo Layer: Procedure Note Radiology, Radiologist, MD - 08/22/2024 [place] [address] Electrocardiograph Report Signed Patient: EDUARDO BENITEZ AMR#: [id number] : 1980Acct:[id number] Age/Sex: 43 / FADM Date: 08/22/24 Loc: PST Attending Dr: Salma Mercado D.O. Ordering Physician: Salma Mercado D.O. Date of Service: 08/22/24 Procedure(s): ECG 12 lead Accession Number(s): [id number] cc: [facility] Test Date: 2024-08-22 Pat Name: EDUARDO BENITEZ Department: Room: - Gender: Female Knitter Machine: : 1980 Requested By: SALMA MERCADO Order Number: [id number] Reading MD: MARIETTA SEQUEIRA M.D. Measurements Intervals [place]anan Rate: 75 P: 60 VT: 186 QRS: -8 QRSD: 94 T: 68 QT: 397 QTc: 444 Interpretive Statements SINUS RHYTHM NONSPECIFIC T-WAVE ABNORMALITY Abnormal ECG No previous ECG available for comparison Electronically Signed On 08-22-2024 21:09:08 EDT by MARIETTA SEQUEIRA M.D. Dictated By: MARIETTA SEQUEIRA Signed By:08/22/24210808/22/242108 DD/ 33 TD/TT: Terrazzo Layer: us Salma Mercado DO [facility] IMAGING Final Result * [facility] PROTHROMBIN TIME INR W/O COUM (08/15/2024 11:30 AM EDT) PROTHROMBIN TIME 10.4 9.0 - 11.6 sec TBH TBH INR 0.98 TBH Comment: DESIRED INR: 2.0-3.0 CONDITIONS NOT LISTED BELOW 2.5-3.5 FOR PROSTHETIC HEART VALVE REPLACEMENT 2.5-3.5 RECURRENT THROMBOSIS 08/15/2024 11:3 0 AM EDT 08/15/2024 11:36 AM EDT Narrative [facility] - 08/15/2024 1:02 PM EDT us Salma Jess DO [facility] Final Result Performing Organization Address [facility] Co de Phone Number [facility] * (ABNORMAL) [facility] LIVER PANEL (08/15/2024 11:30 AM EDT) BILIRUBIN TOTAL 0.4 0.2 - 1.0 mg/dL TBH BILIRUBIN DIRECT 0.1 0.0 - 0.2 mg/dL TBH ASPARTATE AMINO TRANSFERASE 53(H) 15 - 37 U/L TBH ALANINE AMINOTRANSFERASE 52 14 - 59 U/L TBH ALKALINE PHOSPHATASE 54 46 - 116 U/L TBH TOTAL PROTEIN 6.9 6.4 - 8.2 g/dL TBH ALBUMIN LEVEL 3.3(L) 3.4 - 5.0 g/dL TBH GLOBULIN 3.6 g/dL TBH ALBUMIN GLOBULIN RATIO 0.9 TBH 08/15/2024 11:3 0 AM EDT 08/15/2024 11:36 AM EDT Narrative [facility] - 08/15/2024 12:14 PM EDT us Salma Jess DO CL[facility] Final Result Performing Organization Address [facility] Co de Phone Number [facility] * [facility] APTT (08/15/2024 11:30 AM EDT) PARTIAL THROMBOPLASTIN TIME 26.2 22.3 - 36.2 sec TBH 08/15/2024 11:3 0 AM EDT 08/15/2024 11:36 AM EDT Narrative [facility] - 08/15/2024 1:02 PM EDT Salma Jess DO CL[facility] Final Result Performing Organization Address [facility] Co de Phone Number [facility]NC [facility] * (ABNORMAL) ALL BASIC METABOLIC PANEL (08/15/2024 11:30 AM EDT) SODIUM 141 136 - 145 mmol/L TBH POTASSIUM 3.4(L) 3.5 - 5.1 mmol/L TBH CHLORIDE 105 98 - 107 mmol/L TBH CARBON DIOXIDE 27.6 21.0 - 32.0 mmol/L TBH ANION GAP 11.8 TBH GLUCOSE 104 74 - 106 mg/dL TBH BLOOD UREA NITROGEN 12.0 7.0 - 18.0 mg/dL TBH CREATININE 0.86 0.55 - 1.02 mg/dL TBH TBH EGFR-AF GIBRALTARIAN >60 >=60 mL/min/1.7 3m 2 TBH TBH EGFR-NON AF GIBRALTARIAN >60 >=60 mL/min/1.7 3m 2 TBH BUN CREATININE RATIO 14.0 TBH CALCIUM 8.8 8.5 - 10.1 mg/dL TBH 08/15/2024 11:3 0 AM EDT 08/15/2024 11:36 AM EDT Narrative [facility] - 08/15/2024 12:14 PM EDT Salma Mercado DO [facility] Final Result [facility] from Last 3 Months Insurance [employer] Care Teams Cyber Incident Analyst Relationship Specialty Start Date End Date Agusto Alford DO [address] [place] [address] PCP - General Family Medicine 10/25/23
--- OUTSIDE RECORDS SUMMARY | 2024-11-12 16:00 | XMS_ITS | Encounter Summary ---
Author Organization [facility] Address [address] [place] [address] Care Team Providers Care Patent Paralegal Name Role Phone Agusto Alford DO Primary Care Provider [phone] Encounter Details Date Type Department Care Team (Late st Contact Info) Description 08/24/2024 Abstract [facility] [address] [place] [address] [place] [address] Gerald Mercado [address] [place], [place] [address] Social History Tobacco Use Types Packs/Day Years Used Date Smoking Tobacco: Never Passive Smoke Exposure: Never Smokeless Tobacco: Never Alcohol Use Standard Drinks/Week Comments Defer 0 (1 standard drink = 0.6 oz pur e alcohol) Comments Unknown Sex and Gender Information Value Date Recorded Sex Assigned at Not on file Legal Sex Female 7:24 PM EDT Gender Identity Not on file Sexual Orientation Not on file documented as of this encounter Plan of Treatment Upcoming Encounters Date Type Department Care Team (Late st Contact Info) Description 12/10/2024 2:20 PM EDT Office Visit [facility] [address] [place] [address] [place] [address] Gia Cid PA [address] [facility] [address] [place], [facility] 01/08/2025 9:50 AM EDT Office Visit [facility] [address] [place] [address] Alyssa Horvath MD [address] [place] [address] 11/19/2025 10:00 AM EDT Procedure Visit [facility] [address] [facility] [place] [address] Gerald Mercado DO [address] [facility] [place] [address] documented as of this encounter Visit Diagnoses Not on filedocumented in this encounter Care Teams Patent Paralegal Relationship Specialty Start Date End Date Agusto Alford DO [address] [place] [address] PCP - General Family Medicine 10/25/23 documented as of this encounter
--- OUTSIDE RECORDS SUMMARY | 2024-11-12 16:00 | XMS_ITS | Encounter Summary ---
Author Organization [facility] Address [address] [place] [address] Care Team Providers Care Chinese Language Professor Name Role Phone Agusto Alford DO Primary Care Provider [phone] Encounter Details Date Type Department Care Team (Late st Contact Info) Description 11/12/2024 Bamboo flowsheet [facility] [address] [facility] [place] [address] Gerald Mercado [address] [place], [place] [address] Social History Tobacco Use Types Packs/Day Years [...] 12/10/2024 2:20 PM EDT Office Visit [facility] [address] [facility] [place] [address] Gia Cid PA [address] [facility] [address] [place], [facility] 01/08/2025 9:50 AM EDT Office Visit [facility] [address] [place] [address] Alyssa Horvath MD [address] [place] [address] 11/19/2025 10:00 AM EDT Procedure Visit [facility] [address] [facility] [place] [address] Gerald Mercado DO [address] [facility] [place] [address] documented as of this encounter Visit Diagnoses Not on filedocumented in this encounter Care Teams Chinese Language Professor Relationship Specialty Start Date End Date Agusto Alford DO [address] [place] [address] PCP - General Family Medicine 10/25/23 documented as of this encounter
--- OUTSIDE RECORDS SUMMARY | 2024-11-12 16:00 | XMS_ITS | Encounter Summary ---
Author Organization [facility] Address [address] [place] [address] Care Team Providers Care Vice President Regulatory Name Role Phone Agusto Alford DO Primary Care Provider [phone] Encounter Details Date Type Department Care Team (Late st Contact Info) Description 08/09/2024 Abstract [facility] OB [address] [place] [address] [place] [address] Gerald Mercado [address] [place], [place] [address] Social History Tobacco Use Types Packs/Day Years [...] 12/10/2024 2:20 PM EDT Office Visit [facility] OB [address] [place] [address] [place] [address] Gia Cid PA [address] [facility] [address] [place], [facility] 01/08/2025 9:50 AM EDT Office Visit [facility] [address] [place] [address] Alyssa Horvath MD [address] [place] [address] 11/19/2025 10:00 AM EDT Procedure Visit [facility] [address] [facility] [place] [address] Gerald Mercado DO [address] [facility] [place] [address] documented as of this encounter Visit Diagnoses Not on filedocumented in this encounter Care Teams Vice President Regulatory Relationship Specialty Start Date End Date Agusot Alford DO [address] [place] [address] PCP - General Family Medicine 10/25/23 documented as of this encounter
--- OUTSIDE RECORDS SUMMARY | 2024-11-12 16:00 | XMS_ITS | Clinical Summary ---
Author Organization [facility] Address [address] [place] [address] Care Team Providers Care Rides Attendant Name Role Phone Unavailable Primary Care Provider Unavailabl e Social History Tobacco Use Types Packs/Day Years Used Date Smoking Tobacco: Never Assessed Comments Unknown Sex and Gender Information Value Date Recorded Sex Assigned at Not on file Legal Sex Female 12:16 PM EST Gender Identity Not on file Sexual Orientation Not on file Plan of Treatment Not on file
--- OUTSIDE RECORDS SUMMARY | 2024-11-12 16:00 | XMS_ITS | Encounter Summary ---
Author Organization [facility] Address [address] [place] [address] Care Team Providers Care Merchandise Buyer Name Role Phone Agusto Alford DO Primary Care Provider [phone] Encounter Details Date Type Department Care Team (Late st Contact Info) Description 08/26/2024 Abstract [facility] OB [address] [place] [address] [place] [address] Gerald Mercado [address] [place], [place] [address] Social History Tobacco Use Types Packs/Day Years [...] 12/10/2024 2:20 PM EDT Office Visit [facility] OB [address] [place] [address] [place] [address] Gia Cid PA [address] [facility] [address] [place], [facility]11 01/08/2025 9:50 AM EDT Office Visit [facility] [address] [place] [address] Alyssa Horvath MD [address] [place] [address] 11/19/2025 10:00 AM EDT Procedure Visit [facility] [address] [facility] [place] [address] Gerald Mercado DO [address] [facility] [place] [address] documented as of this encounter Visit Diagnoses Not on filedocumented in this encounter Care Teams Merchandise Buyer Relationship Specialty Start Date End Date Agusto Alford DO [address] [place] [address] PCP - General Family Medicine 10/25/23 documented as of this encounter
--- OUTSIDE RECORDS SUMMARY | 2024-11-12 16:00 | XMS_ITS | Encounter Summary ---
Author Organization [facility] Address [address] [place] [address] Care Team Providers Care Flight Nurse Name Role Phone Agusto Alford Eryn DO Primary Care Provider [phone] Encounter Details Date Type Department Care Team (Latest Contact Info) Description 11/05/2024 Travel Social History Tobacco Use Types Packs/Day Years [...] 12/10/2024 2:20 PM EDT Office Visit [facility] [address] [facility] [place] [address] Gia Cid PA [address] [facility] [place] [address] 01/08/2025 9:50 AM EDT Office Visit [facility] [address] [place] [address] Alyssa Horvath MD [address] [place] [address] 11/19/2025 10:00 AM EDT Procedure Visit [facility] [address] [facility] [place] [address] Gerald Mercado DO [address] [place] [address] documented as of this encounter Visit Diagnoses Not on filedocumented in this encounter Care Teams Flight Nurse Relationship Specialty Start Date End Date Agusto Alford DO [address] [place] [address] PCP - General Family Medicine 10/25/23 documented as of this encounter
--- OUTSIDE RECORDS SUMMARY | 2024-11-12 16:00 | XMS_ITS | Encounter Summary ---
Author Organization [facility] Address [address] [place] [address] Care Team Providers Care Dynamite Reclaimer Name Role Phone Agusto Alford Eryn DO Primary Care Provider [phone] Encounter Details Date Type Department Care Team (Late st Contact Info) Description 02/24/2024 Abstract [facility] [address] [place] [address] Jim Zapata, DPM [address] [address] Social History Tobacco Use Types Packs/Day Years [...] EDT Office Visit [facility] [address] [facility] [address] Gia Cid PA [address] [facility] [address] [place], [place] [address] 01/08/2025 9:50 AM EDT Office Visit [facility] [address] [place] [address] Alyssa Horvath MD [address] [place] [address] 11/19/2025 10:00 AM EDT Procedure Visit [facility] [address] [facility] [place] [address] Gerald Mercado DO [address] [facility] [place] [address] documented as of this encounter Visit Diagnoses Not on filedocumented in this encounter Care Teams Dynamite Reclaimer Relationship Specialty Start Date End Date Agusto Alford DO [address] [place] [address] PCP - General Family Medicine 10/25/23 documented as of this encounter
--- OUTSIDE RECORDS SUMMARY | 2024-11-12 16:00 | XMS_ITS | Encounter Summary ---
Author Organization [facility] Address [facility] [place] [id number] Care Team Providers Care Senior Sql Server Developer Name Role Phone Unavailable Primary Care Provider Unavailabl e Source Comments In the event this information is protected by the Federal Confidentiality of Alcohol and Drug AbusePatient Records regulations: The Federal rules restrict any use of the information to criminally investigate or prosecute any alcohol or drug abuse patient.[facility] Encounter Details Date Type Department Care Team (Late st Contact Info) Description 05/18/2024 Lab Requisition [facility] [address] [place] [id number] Amy Gaines MD [address] [place], [place] [phone] Person encountering health services to consult on behalf of another person Social History Tobacco Use Types Packs/Day Years Used Date Smoking Tobacco: Never Assessed Comments Unknown Sex and Gender Information Value Date Recorded Sex Assigned at Not on file Legal Sex Female 12:16 PM EST Gender Identity Not on file Sexual Orientation Not on file documented as of this encounter Plan of Treatment Not on file documented as of this encounter Procedures Procedure Name Priority Date/Time Associated Diagnosis Comments SURGICAL PATHOLOGY Routine 05/17/2024 9: 55 AM EST Person encountering health services to consult on behalf of another person documented in this encounter Results * SURGICAL PATHOLOGY (05/17/2024 9:55 AM EST) Case Report Surgical Pathology Report Case: [id number] Authorizing Provider: Amy Gaines MD Collected: 05/17/2024 09:55 AM Ordering Location: [facility] Received: 05/18/2024 12:21 PM [facility] Pathologist: Patsy Montiel MD Specimen: Liver, Biopsy, Left Liver Lobe Bx [id number] 05/21/2024 4:43 PM EST [facility] FINAL DIAGNOSIS A. 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 - Portal and focal pericellular fibrosis. 05/21/2024 4:43 PM EST [facility] at 1643 EST Diagnosis Comment H&E and special stains are examined. The portal tracts are markedly expanded by dense, predominantly mononuclear inflammatory cell infiltrates including large numbers of lymphocytes and plasma cells. There are patchy, non-caseating granulomatous surrounding and in association with injured bile ducts, in the form of classical florid duct lesions. There is no interface hepatitis. The hepatic lobules contain scattered foci of lobular inflammation associated with hepatocyte swelling. There is no cholestasis. The hepatic vasculature is intact. There is minimal (<5%) macrovesicular steatosis. A trichrome stain shows portal and focal pericellular fibrosis. An iron stain shows no iron deposition (0 of 4). PAS/D stain is negative for intracytoplasmic [id number] globules. Overall, the histomorphologic findings include dense portal inflammation with nonsuppurative granulomatous cholangitis (florid duct lesions), suspicious for primary biliary cholangitis. Medication/toxin-in duced injury, sarcoidosis and infection can also cause these histologic changes and should be excluded clinically.Correlat ion with liver enzymes (alkaline phosphatase and/or GGT) as well as serology (AMA) and clinical findings is recommended. 05/21/2024 4:43 PM EST [facility] Gross Description A. Liver, Biopsy Received in formalin on Telfa gauze are multiple segments of cylindrical tissue aggregating to one 2.1 x 0.7 x 0.1 cm, clayton-brown and of a soft and friable consistency. Totally submitted in one cassette. Gross examination performed at [facility], [address] [place] [id number] [facility] May 18, 2024 12:56 PM 05/21/2024 4:43 PM EST [facility] Clinical History Steatosis of liver 05/21/2024 4:43 PM EST [facility] Performing Lab Diagnostic interpretation performed at: [facility], [address] [place] [address], [place] [id number] [place]# [id number] Shift Mgr: Chito Valadez MD 05/21/2024 4:43 PM EST [facility] Tissue LIVER BIOPSY SPECIMEN / Unknown 05/17/2024 9:55 AM EST 05/18/2024 12:21 PM EST us Amy Gaines MD SURGICAL PATHOLOGY Final Result Performing Organization Address City/State/[facility] Co de Phone Number [facility] [address] [place], [place] [id number], documented in this encounter Visit Diagnoses Diagnosis Person encountering health services to consult on behalf of another person Other person consulting on behalf of another person documented in this encounter
[2024-11-16 09:09] LABS: Age Gdln ACOG Testing Note (.); IGP, Aptima HPV, rfx 16/18,45 Note (.)
== END 2024-11-12 15:58 | disposition home or self-care (01) ==
LOC: LAB 15:57
PROVIDERS: PCP Family Medicine; Visit Provider Obstetrics & Gynecology
DX: Z01.419 Encounter for gynecological examination (general) (routine) without abnormal findings (principal)
CPT/HCPCS: 87624; 88175